=== PATIENT | female | born 1940 | race Two or more races ===

== ENCOUNTER 2021-04-26 10:30 | Inpatient (IN) | payer OTHER ==
[~2021-04-26] VITALS: Ht 157.5 cm; Wt 81.0 kg
[2021-04-26] MEDS ORDERED: LORazepam 2MG/ML-1ML VIAL ONE (10:47)
[2021-04-26] MEDS ORDERED: SODIUM CHLORIDE 0.9% 500 ML IVB ONE (11:00)
[2021-04-26] MEDS ORDERED: SODIUM CHLORIDE 0.9% 1,000 ML IV ONE (11:00)
[2021-04-26] MEDS ORDERED: LORazepam 2MG/ML-1ML VIAL IV ONE (11:00)
[2021-04-26 11:35] LABS: Urine Bacteria MANY /hpf (None Seen); Urine Blood 1+ /uL (Negative); Urine Budding Yeast MANY /hpf (None Seen); Urine Mucus MODERATE (None Seen); Urine Specific Gravity 1.018 (1.001-1.035); Urine WBC 551 /hpf (0 - 5); Urine WBC Clumps PRESENT /hpf (None Seen)
[2021-04-26 11:47] LABS: Amphetamine Screen, Urine NEGATIVE (NEGATIVE); Barbiturate Scree,Urine NEGATIVE (NEGATIVE); Benzodiazephine Screen, Urine NEGATIVE (NEGATIVE); Cannabinoid Screen, Urine NEGATIVE (NEGATIVE); Cocaine Screen, Urine NEGATIVE (NEGATIVE); Opiate Scree,Urine NEGATIVE (NEGATIVE); Phencyclidine Screen, Urine NEGATIVE (NEGATIVE)
[2021-04-26 11:51] LABS: Basophils # (auto) 0 10 ^3/uL (0-0.2); Basophils % (auto) 0.6 % (0.0-2.0); Eosinophils # (auto) 0.1 10 ^3/uL (0-0.8); Eosinophils % (auto) 0.8 % (0.0-7.0); Hematocrit 37.8 % (36.0-46.0); Hemoglobin 12.3 g/dL (12.2-16.2); Lymphocytes # (auto) 0.6 10 ^3/uL (0.4-5.4); Lymphocytes % (auto) 9.9 % (10.0-50.0); Mean Corpuscular Hemoglobin 29.4 pg (28.0-32.0); Mean Corpuscular Hgb Conc. 32.5 g/dL (32.0-36.0); Mean Corpuscular Volume 90.6 fL (80.0-100.0); Monocytes # (auto) 0.3 10 ^3/uL (0-1.3); Monocytes % (auto) 5.1 % (0.0-12.0); Neutrophils # (auto) 5.4 10 ^3/uL (1.6-8.6); Neutrophils % (auto) 83.6 % (37.0-80.0); Nucleated Red Blood Cells % 0.1 %; Red Blood Cells 4.18 10^6/uL (4.0-5.20); Red Cell Distribution Width 17.6 % (11.8-14.3); White Blood Cell 6.4 10^3/uL (4.4-10.8)
[2021-04-26 12:04] LABS: INR 1.02 (0.9-1.15); Partial Thromboplastin Time 20.2 sec (23.6-33.0)
[2021-04-26 12:06] LABS: Albumin 2.8 g/dL (3.4-5.0); BUN/Creatinine Ratio 8.7; Calcium 8.4 mg/dL (8.5-10.1); Magnesium 1.9 mg/dL (1.6-2.6); Potassium 3.4 mmol/L (3.5-5.1)
[2021-04-26] MEDS ORDERED: MORPHINE SULFATE INJECTION 2 MG/ML SYRG IV PRN (13:15)
[2021-04-26] MEDS ORDERED: NITROGLYCERIN 0.4 MG SL TAB SL PRN (13:15)
[2021-04-26 13:29] LABS: Total Protein 6.4 g/dL (6.4-8.2)
[2021-04-26] MEDS ORDERED: cefTRIAXone 1GM/50ML D5W 50 ML IV ONE (14:30)
[2021-04-26] MEDS ORDERED: LORazepam 2MG/ML-1ML VIAL IV PRN ×2 (15:15→21:15)
[2021-04-26] MEDS ORDERED: PROMETHAZINE HCL 25 MG/ML 1ML IV PRN (15:15)
[2021-04-26 21:20] VITALS: BP 135/74
[2021-04-26 21:46] LABS: Cholesterol 153 mg/dL (< 200); Triglycerides 217 mg/dL (< 150)
[2021-04-26 21:49] LABS: HDL Cholesterol 26 mg/dL (40-59); LDL Cholesterol 98 mg/dL (< 100)
[2021-04-26] MEDS ORDERED: ONDA-144 PO (21:59)
[2021-04-26] MEDS ORDERED: FAMO20TA10 PO (21:59)
[2021-04-26] MEDS ORDERED: CARB-80 PO (21:59)
[2021-04-26] MEDS ORDERED: LATA0.0019 EACHEYE (21:59)
[2021-04-26] MEDS ORDERED: PRAM0.12 PO (21:59)
[2021-04-27] MEDS ORDERED: levETIRAcetam 500 MG/5ML INJ IV ONE (00:05)
[2021-04-27] MEDS: LORazepam 2MG/ML-1ML VIAL IV PRN ×2 (03:40→12:15)
[2021-04-27 05:46] VITALS: BP 129/78
[2021-04-27] MEDS ORDERED: cefTRIAXone 1GM/50ML D5W 50 ML IV SCH (09:00)
[2021-04-27 09:08] VITALS: BP 138/83
[2021-04-27] MEDS: FAMOTIDINE (10MG/ML) 2ML VL IV SCH (09:11)
[2021-04-27 12:48] VITALS: BP 140/99
[2021-04-27] MEDS ORDERED: VANCOMYCIN PER PHARMACY 0 MG IV SCH (13:45)
[2021-04-27] MEDS ORDERED: CEFTRIAXONE SODIUM 2 GM in D5W 5% 50 ML IV ONE (13:45)
[2021-04-27] MEDS ORDERED: VANCOMYCIN 1GM/250ML 250 ML IV ONE (15:15)
[2021-04-27] MEDS: D5W/SOD CHL 0.45% 1,000 ML IV SCH (17:04)
[2021-04-27 17:37] VITALS: BP 135/88
[2021-04-27] MEDS: ACCU-CHEK COMFORT CURVE STRIP VI SCH (21:47)
[2021-04-27 22:00] VITALS: BP 136/80
[2021-04-28] MEDS: D5W/SOD CHL 0.45% 1,000 ML IV SCH ×2 (04:26→17:11)
[2021-04-28 05:00] VITALS: BP 111/60
[2021-04-28 07:52] LABS: Basophils # (auto) 0 10 ^3/uL (0-0.2); Basophils % (auto) 0.6 % (0.0-2.0); Eosinophils # (auto) 0.1 10 ^3/uL (0-0.8); Eosinophils % (auto) 0.8 % (0.0-7.0); Hematocrit 35.4 % (36.0-46.0); Hemoglobin 11.7 g/dL (12.2-16.2); Lymphocytes # (auto) 1.6 10 ^3/uL (0.4-5.4); Lymphocytes % (auto) 21.1 % (10.0-50.0); Mean Corpuscular Hemoglobin 29.5 pg (28.0-32.0); Mean Corpuscular Hgb Conc. 33.1 g/dL (32.0-36.0); Mean Corpuscular Volume 89.3 fL (80.0-100.0); Monocytes # (auto) 0.7 10 ^3/uL (0-1.3); Monocytes % (auto) 9.3 % (0.0-12.0); Neutrophils # (auto) 5.3 10 ^3/uL (1.6-8.6); Neutrophils % (auto) 68.2 % (37.0-80.0); Nucleated Red Blood Cells % 0.1 %; Red Blood Cells 3.97 10^6/uL (4.0-5.20); Red Cell Distribution Width 17.4 % (11.8-14.3); White Blood Cell 7.8 10^3/uL (4.4-10.8)
[2021-04-28 08:08] LABS: Potassium 3.2 mmol/L (3.5-5.1)
[2021-04-28 08:22] LABS: BUN/Creatinine Ratio 13.7; CRP High Sensitivity 2.28 mg/dL (< 0.3); Calcium 7.8 mg/dL (8.5-10.1)
[2021-04-28] MEDS: cefTRIAXone 1GM/50ML D5W 50 ML IV SCH (08:50)
[2021-04-28 09:00] VITALS: BP 120/63
[2021-04-28] MEDS ORDERED: INFLUENZA QUAD 2021-2022 0.5 ML SYRG IM ONE (10:00)
[2021-04-28] MEDS: ACCU-CHEK COMFORT CURVE STRIP VI SCH ×2 (10:05→23:33)
[2021-04-28] MEDS: FAMOTIDINE (10MG/ML) 2ML VL IV SCH (10:05)
[2021-04-28] MEDS: LORazepam 2MG/ML-1ML VIAL IV PRN ×2 (10:55→22:15)
[2021-04-28 11:07] LABS: Folate (Folic Acid) 3.27 ng/mL (5.38-24)
[2021-04-28 13:25] VITALS: BP 138/61
[2021-04-28 16:00] VITALS: BP 113/61
[2021-04-28] MEDS: VANCOMYCIN 1GM/250ML 250 ML IV SCH (17:10)
[2021-04-28 22:00] VITALS: BP 132/72
[2021-04-28] MEDS ORDERED: PHENYTOIN IV DILANTIN 1,000 MG in SODIUM CHL 0.9% 250 ML IV ONE (23:00)
[2021-04-29] MEDS ORDERED: PHENYTOIN SODIUM 50 MG/ML 5ML INJ VIAL IV ONE (00:17)
[2021-04-29] MEDS ORDERED: PHENYTOIN SODIUM 50 MG/ML 2ML VIAL IV ONE (00:17)
[2021-04-29 05:00] VITALS: BP 121/67
[2021-04-29] MEDS: PHENYTOIN SODIUM 50 MG/ML 2ML VIAL IV SCH ×3 (05:58→22:28)
[2021-04-29 06:47] LABS: Basophils # (auto) 0 10 ^3/uL (0-0.2); Basophils % (auto) 0.3 % (0.0-2.0); Eosinophils # (auto) 0.1 10 ^3/uL (0-0.8); Eosinophils % (auto) 1.5 % (0.0-7.0); Hematocrit 31.8 % (36.0-46.0); Hemoglobin 10.5 g/dL (12.2-16.2); Lymphocytes # (auto) 1.1 10 ^3/uL (0.4-5.4); Lymphocytes % (auto) 17.4 % (10.0-50.0); Mean Corpuscular Hemoglobin 29.6 pg (28.0-32.0); Mean Corpuscular Hgb Conc. 33.2 g/dL (32.0-36.0); Mean Corpuscular Volume 89.1 fL (80.0-100.0); Monocytes # (auto) 0.5 10 ^3/uL (0-1.3); Monocytes % (auto) 7.5 % (0.0-12.0); Neutrophils # (auto) 4.5 10 ^3/uL (1.6-8.6); Neutrophils % (auto) 73.3 % (37.0-80.0); Nucleated Red Blood Cells % 0.1 %; Red Blood Cells 3.56 10^6/uL (4.0-5.20); Red Cell Distribution Width 17.2 % (11.8-14.3); White Blood Cell 6.2 10^3/uL (4.4-10.8)
[2021-04-29 06:52] LABS: Albumin 2.4 g/dL (3.4-5.0); Calcium 7.5 mg/dL (8.5-10.1)
[2021-04-29 06:57] LABS: Bilirubin, Total 0.7 mg/dL (0.2-1.0); Total Protein 4.9 g/dL (6.4-8.2)
[2021-04-29 07:00] VITALS: BP 125/80
[2021-04-29] MEDS: D5W/SOD CHL 0.45% 1,000 ML IV SCH (07:56)
[2021-04-29 08:00] VITALS: BP 125/80
[2021-04-29 09:22] LABS: BUN/Creatinine Ratio 8.8
[2021-04-29] MEDS: FOLIC ACID 1 MG TAB PO SCH (10:00)
[2021-04-29] MEDS ORDERED: FOLIC ACID 1 MG in D5W 5% 50 ML INJ SCH (10:00)
[2021-04-29] MEDS: FAMOTIDINE (10MG/ML) 2ML VL IV SCH (10:25)
[2021-04-29] MEDS: ACCU-CHEK COMFORT CURVE STRIP VI SCH (10:29)
[2021-04-29] MEDS: cefTRIAXone 1GM/50ML D5W 50 ML IV SCH (10:30)
[2021-04-29 13:00] VITALS: BP 106/66
[2021-04-29] MEDS ORDERED: GADOTERATE MEG 10 MMOL/20ml INJ (0.5MMOL/ml) IV ONE (15:10)
[2021-04-29] MEDS: POTASSIUM CHL 20MEQ/100ML 100 ML IV SCH ×3 (16:54→20:37)
[2021-04-29] MEDS: VANCOMYCIN 1GM/250ML 250 ML IV SCH (16:58)
[2021-04-29 17:05] VITALS: BP 141/78
[2021-04-29] MEDS ORDERED: CLINIMIX PER PHARMACY 0 ML IV SCH (17:15)
[2021-04-29] MEDS ORDERED: AMINO ACID INFUSION IN D10W 1,000 ML IV NR (20:00)
[2021-04-29] MEDS ORDERED: POTASSIUM CHL 20MEQ/100ML 100 ML IV ONE (20:36)
[2021-04-29 22:00] VITALS: BP 126/69
[2021-04-30] MEDS ORDERED: DEXTROSE (50%) 50ML SYRG IV SCH
[2021-04-30] MEDS: ACCU-CHEK COMFORT CURVE STRIP VI SCH ×5 (00:07→23:49)
[2021-04-30 05:00] VITALS: BP 127/77
[2021-04-30] MEDS: PHENYTOIN SODIUM 50 MG/ML 2ML VIAL IV SCH ×3 (06:32→23:45)
[2021-04-30] MEDS: InsuLIN REG 1unit/0.01ml Soln (100units/ml) SC SCH ×5 (06:40→23:48)
[2021-04-30 07:15] LABS: Albumin 2.4 g/dL (3.4-5.0); BUN/Creatinine Ratio 10.9; Bilirubin, Total 0.6 mg/dL (0.2-1.0); Calcium 7.7 mg/dL (8.5-10.1); Phosphorus 1.9 mg/dL (2.5-4.90); Pre Albumin 14.4 mg/dL (20.0-40.0); Total Protein 5.4 g/dL (6.4-8.2)
[2021-04-30 07:55] LABS: Potassium 2.7 mmol/L (3.5-5.1)
[2021-04-30 09:00] VITALS: BP 125/70
[2021-04-30] MEDS: FOLIC ACID 1 MG TAB PO SCH (10:00)
[2021-04-30] MEDS: FAMOTIDINE (10MG/ML) 2ML VL IV SCH (10:06)
[2021-04-30] MEDS: POTASSIUM CHL 20MEQ/100ML 100 ML IV SCH ×2 (10:14→13:17)
[2021-04-30] MEDS ORDERED: LIDOCAINE 2%HCL (LOCAL ANESTH.) INJ 20ML MDV ONE (10:21)
[2021-04-30 11:22] LABS: INR 1.06 (0.9-1.15); Partial Thromboplastin Time 25.6 sec (23.6-33.0)
[2021-04-30 13:00] VITALS: BP 156/85
[2021-04-30] MEDS ORDERED: POTASSIUM PHOSPHATE 22 MEQ in SODIUM CHL 0.9% 100 ML IV ONE (13:00)
[2021-04-30 16:08] LABS: Protein, CSF 72.4 mg/dL (15-45)
[2021-04-30 16:16] LABS: Albumin 2.4 g/dL (3.4-5.0); BUN/Creatinine Ratio 11.8; Calcium 7.9 mg/dL (8.5-10.1); Potassium 3.4 mmol/L (3.5-5.1)
[2021-04-30 16:18] LABS: Bilirubin, Total 0.6 mg/dL (0.2-1.0)
[2021-04-30] MEDS: VANCOMYCIN 1GM/250ML 250 ML IV SCH (16:40)
[2021-04-30 16:45] LABS: CSF White Blood Cells 1 CUMM (0-5)
[2021-04-30 17:00] VITALS: BP 145/71
[2021-04-30] MEDS ORDERED: POTASSIUM CHL 20MEQ/100ML 100 ML IV ONE (17:15)
[2021-04-30] MEDS ORDERED: AMINO ACID INFUSION IN D10W 1,000 ML IV NR (20:00)
[2021-04-30] MEDS: VALPROATE INJ 500 MG in SODIUM CHL 0.9% 100 ML IV SCH (20:47)
[2021-04-30] MEDS ORDERED: cefTRIAXone 1GM/50ML D5W 50 ML IV SCH (21:00)
[2021-05-01 05:27] LABS: Basophils # (auto) 0 10 ^3/uL (0-0.2); Basophils % (auto) 0.4 % (0.0-2.0); Eosinophils # (auto) 0.2 10 ^3/uL (0-0.8); Eosinophils % (auto) 2.4 % (0.0-7.0); Hemoglobin 10.1 g/dL (12.2-16.2); Lymphocytes # (auto) 1.4 10 ^3/uL (0.4-5.4); Lymphocytes % (auto) 20.1 % (10.0-50.0); Mean Corpuscular Hemoglobin 30.1 pg (28.0-32.0); Mean Corpuscular Hgb Conc. 33.8 g/dL (32.0-36.0); Monocytes # (auto) 0.4 10 ^3/uL (0-1.3); Monocytes % (auto) 6.5 % (0.0-12.0); Neutrophils # (auto) 4.8 10 ^3/uL (1.6-8.6); Neutrophils % (auto) 70.6 % (37.0-80.0); Red Blood Cells 3.38 10^6/uL (4.0-5.20); Red Cell Distribution Width 17.4 % (11.8-14.3); White Blood Cell 6.8 10^3/uL (4.4-10.8)
[2021-05-01 05:40] LABS: Phenytoin (Dilantin) 12.6 ug/mL (10-20)
[2021-05-01 05:44] LABS: Potassium 3.6 mmol/L (3.5-5.1)
[2021-05-01] MEDS ORDERED: LORazepam 2MG/ML-1ML VIAL ONE ×2 (05:45→06:21)
[2021-05-01] MEDS: LORazepam 2MG/ML-1ML VIAL IV PRN ×4 (05:54→19:57)
[2021-05-01] MEDS: InsuLIN REG 1unit/0.01ml Soln (100units/ml) SC SCH ×3 (06:00→18:00)
[2021-05-01] MEDS: PHENYTOIN SODIUM 50 MG/ML 2ML VIAL IV SCH ×3 (06:02→21:29)
[2021-05-01 06:05] LABS: Albumin 2.4 g/dL (3.4-5.0); BUN/Creatinine Ratio 7.8; Bilirubin, Total 0.6 mg/dL (0.2-1.0); CRP High Sensitivity 4.74 mg/dL (< 0.3); Calcium 7.9 mg/dL (8.5-10.1); Magnesium 1.6 mg/dL (1.6-2.6); Phosphorus 1.8 mg/dL (2.5-4.90)
[2021-05-01] MEDS: VALPROATE INJ 500 MG in SODIUM CHL 0.9% 100 ML IV SCH (06:14)
[2021-05-01] MEDS: ACCU-CHEK COMFORT CURVE STRIP VI SCH ×3 (07:42→18:00)
[2021-05-01] MEDS ORDERED: MAGNESIUM SULFATE 1GM/100ML 100 ML IV ONE (09:15)
[2021-05-01] MEDS: FOLIC ACID 1 MG TAB PO SCH (10:00)
[2021-05-01] MEDS: FAMOTIDINE (10MG/ML) 2ML VL IV SCH ×2 (10:51→21:28)
[2021-05-01] MEDS ORDERED: POTASSIUM PHOSP 26.4MEQ(18MMOL) IN NS 100 ML IV ONE (11:00)
[2021-05-01] MEDS ORDERED: VALPROATE INJ 1,000 MG in SODIUM CHL 0.9% 100 ML IV SCH (14:00)
[2021-05-01] MEDS ORDERED: ENALAPRILAT 1.25 MG/ML-1ML VIAL IV PRN (15:15)
[2021-05-01] MEDS: cefTRIAXone 1GM/50ML D5W 50 ML IV SCH (16:01)
[2021-05-01] MEDS ORDERED: AMINO ACID INFUSION IN D10W 1,000 ML IV NR (20:00)
[2021-05-02] MEDS: LORazepam 2MG/ML-1ML VIAL IV PRN ×2 (03:07→19:12)
[2021-05-02] MEDS: ACCU-CHEK COMFORT CURVE STRIP VI SCH ×4 (03:25→17:55)
[2021-05-02] MEDS: InsuLIN REG 1unit/0.01ml Soln (100units/ml) SC SCH ×4 (06:00→17:55)
[2021-05-02 07:24] LABS: Basophils # (auto) 0.1 10 ^3/uL (0-0.2); Basophils % (auto) 0.8 % (0.0-2.0); Eosinophils # (auto) 0.2 10 ^3/uL (0-0.8); Hematocrit 30.7 % (36.0-46.0); Lymphocytes # (auto) 1.1 10 ^3/uL (0.4-5.4); Lymphocytes % (auto) 15.8 % (10.0-50.0); Mean Corpuscular Hemoglobin 28.8 pg (28.0-32.0); Mean Corpuscular Hgb Conc. 32.4 g/dL (32.0-36.0); Monocytes # (auto) 0.5 10 ^3/uL (0-1.3); Monocytes % (auto) 7.5 % (0.0-12.0); Neutrophils # (auto) 5.1 10 ^3/uL (1.6-8.6); Neutrophils % (auto) 72.9 % (37.0-80.0); Red Blood Cells 3.45 10^6/uL (4.0-5.20); Red Cell Distribution Width 17.4 % (11.8-14.3); White Blood Cell 6.9 10^3/uL (4.4-10.8)
[2021-05-02] MEDS: PHENYTOIN SODIUM 50 MG/ML 2ML VIAL IV SCH ×3 (07:44→21:36)
[2021-05-02 07:49] LABS: Potassium 3.1 mmol/L (3.5-5.1)
[2021-05-02 07:59] LABS: Albumin 2.2 g/dL (3.4-5.0); Bilirubin, Total 0.4 mg/dL (0.2-1.0); Calcium 7.8 mg/dL (8.5-10.1); Magnesium 2.6 mg/dL (1.6-2.6); Phosphorus 3.1 mg/dL (2.5-4.90); Total Protein 5.5 g/dL (6.4-8.2)
[2021-05-02 08:08] LABS: Phenytoin (Dilantin) 12.8 ug/mL (10-20)
[2021-05-02] MEDS ORDERED: POTASSIUM CHL 20MEQ/50ML 50 ML IV ONE (08:30)
[2021-05-02 09:00] VITALS: BP 133/70
[2021-05-02] MEDS: cefTRIAXone 1GM/50ML D5W 50 ML IV SCH (09:06)
[2021-05-02] MEDS: FAMOTIDINE (10MG/ML) 2ML VL IV SCH ×2 (09:06→21:37)
[2021-05-02] MEDS: FOLIC ACID 1 MG TAB PO SCH (09:06)
[2021-05-02] MEDS ORDERED: POTASSIUM CHLORIDE 40 MEQ, LIDOCAINE 1% (LOCAL ANESTH.) 4 ML in SODIUM CHL 0.9% 250 ML IV ONE (09:15)
[2021-05-02] MEDS ORDERED: POTASSIUM PHOSPHATE 22 MEQ in SODIUM CHL 0.9% 100 ML IV ONE (11:00)
[2021-05-02 13:00] VITALS: BP 154/88
[2021-05-02 16:47] VITALS: BP 156/75
[2021-05-02] MEDS ORDERED: AMINO ACID INFUSION IN D10W 1,000 ML IV NR (20:00)
[2021-05-02 22:29] VITALS: BP 94/40
[2021-05-03] MEDS: ACCU-CHEK COMFORT CURVE STRIP VI SCH ×4 (00:08→18:00)
[2021-05-03 04:59] VITALS: BP 123/82
[2021-05-03] MEDS: InsuLIN REG 1unit/0.01ml Soln (100units/ml) SC SCH ×4 (06:00→18:00)
[2021-05-03] MEDS: PHENYTOIN SODIUM 50 MG/ML 2ML VIAL IV SCH ×3 (07:13→21:35)
[2021-05-03 07:38] LABS: Basophils # (auto) 0 10 ^3/uL (0-0.2); Basophils % (auto) 0.4 % (0.0-2.0); Eosinophils # (auto) 0.3 10 ^3/uL (0-0.8); Eosinophils % (auto) 3.4 % (0.0-7.0); Hematocrit 31.6 % (36.0-46.0); Hemoglobin 10.3 g/dL (12.2-16.2); Lymphocytes # (auto) 1.1 10 ^3/uL (0.4-5.4); Lymphocytes % (auto) 14.1 % (10.0-50.0); Mean Corpuscular Hemoglobin 29.3 pg (28.0-32.0); Mean Corpuscular Hgb Conc. 32.6 g/dL (32.0-36.0); Mean Corpuscular Volume 89.9 fL (80.0-100.0); Monocytes # (auto) 0.8 10 ^3/uL (0-1.3); Monocytes % (auto) 9.8 % (0.0-12.0); Neutrophils # (auto) 5.8 10 ^3/uL (1.6-8.6); Neutrophils % (auto) 72.3 % (37.0-80.0); Potassium 3.8 mmol/L (3.5-5.1); Red Blood Cells 3.51 10^6/uL (4.0-5.20); Red Cell Distribution Width 17.9 % (11.8-14.3)
[2021-05-03 08:00] VITALS: BP 127/83
[2021-05-03 09:20] LABS: Phenytoin (Dilantin) 16.6 ug/mL (10-20)
[2021-05-03 09:40] LABS: BUN/Creatinine Ratio 14.8
[2021-05-03 09:41] LABS: Albumin 2.2 g/dL (3.4-5.0); Bilirubin, Total 0.3 mg/dL (0.2-1.0); Calcium 7.7 mg/dL (8.5-10.1); Phosphorus 2.7 mg/dL (2.5-4.90)
[2021-05-03 12:00] VITALS: BP 125/60
[2021-05-03] MEDS: FAMOTIDINE (10MG/ML) 2ML VL IV SCH ×2 (12:54→21:35)
[2021-05-03] MEDS: cefTRIAXone 1GM/50ML D5W 50 ML IV SCH (12:54)
[2021-05-03] MEDS: FOLIC ACID 1 MG TAB PO SCH (12:54)
[2021-05-03 17:00] VITALS: BP 128/86
[2021-05-03 20:00] VITALS: BP 147/70
[2021-05-03] MEDS ORDERED: AMINO ACID INFUSION IN D10W 1,000 ML IV NR (20:00)
[2021-05-03 22:00] VITALS: BP 147/70
[2021-05-04 05:00] VITALS: BP 130/79
[2021-05-04] MEDS: InsuLIN REG 1unit/0.01ml Soln (100units/ml) SC SCH ×3 (06:00→12:57)
[2021-05-04] MEDS: ACCU-CHEK COMFORT CURVE STRIP VI SCH ×3 (06:04→12:56)
[2021-05-04] MEDS: PHENYTOIN SODIUM 50 MG/ML 2ML VIAL IV SCH ×2 (06:04→14:30)
[2021-05-04 08:08] LABS: Basophils # (auto) 0 10 ^3/uL (0-0.2); Basophils % (auto) 0.3 % (0.0-2.0); Eosinophils # (auto) 0.3 10 ^3/uL (0-0.8); Eosinophils % (auto) 3.4 % (0.0-7.0); Hematocrit 30.7 % (36.0-46.0); Hemoglobin 10.1 g/dL (12.2-16.2); Lymphocytes # (auto) 1.4 10 ^3/uL (0.4-5.4); Lymphocytes % (auto) 17.7 % (10.0-50.0); Mean Corpuscular Hemoglobin 29.2 pg (28.0-32.0); Mean Corpuscular Hgb Conc. 32.8 g/dL (32.0-36.0); Monocytes # (auto) 0.7 10 ^3/uL (0-1.3); Monocytes % (auto) 8.8 % (0.0-12.0); Neutrophils # (auto) 5.3 10 ^3/uL (1.6-8.6); Neutrophils % (auto) 69.8 % (37.0-80.0); Nucleated Red Blood Cells % 0.1 %; Red Blood Cells 3.45 10^6/uL (4.0-5.20); Red Cell Distribution Width 17.4 % (11.8-14.3); White Blood Cell 7.6 10^3/uL (4.4-10.8)
[2021-05-04 08:27] LABS: Calcium 8.1 mg/dL (8.5-10.1); Potassium 3.5 mmol/L (3.5-5.1)
[2021-05-04 08:32] LABS: Albumin 2.3 g/dL (3.4-5.0); BUN/Creatinine Ratio 24.3; Bilirubin, Total 0.4 mg/dL (0.2-1.0); Magnesium 2.5 mg/dL (1.6-2.6); Phosphorus 2.2 mg/dL (2.5-4.90); Total Protein 5.3 g/dL (6.4-8.2)
[2021-05-04 09:30] VITALS: BP 138/78
[2021-05-04] MEDS: cefTRIAXone 1GM/50ML D5W 50 ML IV SCH (09:57)
[2021-05-04] MEDS ORDERED: POTASSIUM PHOSPHATE 26.4 MEQ in SODIUM CHL 0.9% 100 ML IV ONE (10:00)
[2021-05-04] MEDS: FOLIC ACID 1 MG TAB PO SCH (10:50)
[2021-05-04] MEDS: FAMOTIDINE (10MG/ML) 2ML VL IV SCH (10:50)
[2021-05-04 12:00] VITALS: BP 136/67
[2021-05-04] MEDS ORDERED: AMINO ACID INFUSION IN D10W 1,000 ML IV NR (20:00)
[2021-05-06 12:06] LABS: Cryptococcus Antigen CSF Negative (Negative)
== END 2021-05-04 15:45 | disposition hospice, home (50) | DRG 100 ==
LOC: EDBD 10:30 → ER 10:30 → TELE 13:15 → TELE-WESTW 21:18
PROVIDERS: ADMIT Hospitalist; ATTEND Hospitalist
PROC: 009U3ZX Drainage of Spinal Canal, Percutaneous Approach, Diagnostic (ICD-10-PCS; principal; 2021-04-30)
PROC: B01B1ZZ Fluoroscopy of Spinal Cord using Low Osmolar Contrast (ICD-10-PCS; 2021-04-30)
DX: G40.401 Other generalized epilepsy and epileptic syndromes, not intractable, with status epilepticus (principal); G93.41 Metabolic encephalopathy; N39.0 Urinary tract infection, site not specified; E44.1 Mild protein-calorie malnutrition; G81.94 Hemiplegia, unspecified affecting left nondominant side; G91.2 (Idiopathic) normal pressure hydrocephalus; Z66 Do not resuscitate; G83.84 Todd's paralysis (postepileptic); E78.5 Hyperlipidemia, unspecified; D69.49 Other primary thrombocytopenia; D64.9 Anemia, unspecified; Z20.822 Contact with and (suspected) exposure to COVID-19; E87.6 Hypokalemia; G20 Parkinson's disease; Z68.32 Body mass index [BMI] 32.0-32.9, adult; Z23 Encounter for immunization; Z82.49 Family history of ischemic heart disease and other diseases of the circulatory system; Z79.899 Other long term (current) drug therapy; Z82.0 Family history of epilepsy and other diseases of the nervous system; Z82.3 Family history of stroke; Z83.3 Family history of diabetes mellitus; Z86.11 Personal history of tuberculosis; Z86.16 Personal history of COVID-19
CPT/HCPCS: 36415; 62272; 70450; 70551; 70553; 71045; 80048; 80053; 80061; 80164; 80185; 80202; 80307; 81001; 82040; 82607; 82746; 82945; 82962; 83735; 84100; 84157; 84443; 84478; 84484; 85025; 85610; 85652; 85730; 86141; 87070; 87081; 87086; 87205; 87426; 87529; 87899; 89051; 93005; 93306; 93886; 95819; 96361; 96365; 96375; 97163; G0378; J0696; J2001; J3480; J3490; J7060